=== PATIENT | female | born 1985 | race Asian ===

== ENCOUNTER → 2024-11-27 | Outpatient (CLI) | payer BC, SELFPAY ==
--- NOTE | 2024-11-27 15:45 | XR_ITS ---
Examination: Pelvic ultrasound, transabdominal, complete Technique: Transabdominal ultrasound of the pelvis performed using grayscale imaging Date and time of exam: November 27, 2024 1602 hours INDICATIONS: Pelvic pain beginning 6 months ago FINDINGS: Uterus 7.8 cm anterior uterine fundal mass 10 x 7 x 12 mm, uterine body calcifications 6 mm Endometrium is irregular and may be extending into the myometrium, measuring 1.1 cm Right ovary 2.9 cm and parietal flow small follicles, the largest 7 mm Left ovary 2.6 cm arterial flow small follicles, the largest 6 mm Moderate free fluid in the pelvis IMPRESSION: Anterior uterine area of fibroid degeneration 10 x 7 x 12 mm Abnormally irregular endometrium which may be extending into the myometrium, recommend transvaginal pelvic sonography follow-up
[2024-11-27 17:48] LABS: Follicle Stimulating Hormone 3.64 mIU/mL (See Note); Thyroid Stimulating Hormone 1.72 uIU/mL (0.55-4.78)
[2024-12-10 06:54] LABS: DHEA Sulfate* 95 mcg/dL (23-266); Estradiol, Ultrasensitive* 206 pg/mL; Luteinizing Hormone* 2.9 mIU/mL
== END | disposition home or self-care (01) ==
LOC: CDIM 15:47 → COPL 16:18 → CDIM 12-12 06:40
PROVIDERS: Referring Provider Family Medicine; Visit Provider Family Medicine
DX: D25.9 Leiomyoma of uterus, unspecified (principal)
CPT/HCPCS: 36415; 76856; 82627; 82670; 83001; 83002; 84443

== ENCOUNTER 2025-03-08 13:49 | Outpatient (AMB) | payer BC, SELFPAY ==
--- NOTE | 2025-03-08 14:09 | AMB.GYNCLNOT ---
Vital Signs 03/08/25 14:10 Height 1.5 m Height Method Stated Weight 44.169 kg Weight Measurement Method Standing Scale BMI 19.6 BP 95/65 Blood Pressure Source Automatic Cuff Blood Pressure Location Left Upper Arm Position Sitting Respiration 14 Pulse 76 Pulse Source Monitor Temp 97.8 F Temp Source Oral Pulse Oximetry (%) 98 Oxygen Delivery Method Room Air Allergies/Home Meds Allergies & Medications Allergies No Known Allergies Allergy (Verified 03/08/25 14:10) Intake Visit Data Collection New Patient or Established: Established Patient (seen at 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 Menstrual regularity: regular Flow: heavy Monthly: Yes How many days does period last: 5 Age at menarche: 13 Menopausal: No 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 1. Little interest or pleasure in doing things: not at all 2. Feeling down, depressed, or hopeless: not at all Total score: 0 PHQ-9 3. Trouble falling or staying asleep, or sleeping too much: Not at all 4. Feeling tired or having little energy: Not at all 5. Poor appetite or overeating: Not at all 6. Feeling bad about yourself - or that you are a failure or have let yourself or your family down: Not at all 7. Trouble concentrating on things, such as reading the newspaper or watching television: Not at all 8. Moving or speaking so slowly that other people could have noticed? - Or the opposite - being so fidgety or restless that you have been moving around a lot more than usual: not at all 9. Thoughts that you would be better off or of hurting yourself in some way: Not at all Total score: 0 Source: Developed by Drs. Mayo Ruiz, Aretha French, Shahab Rubio and colleagues, with an educational rey from [employer]. Depression screen completed yes Social History Living Situation History Marital Status: Lives With: Family Housing: House Tobacco History Smoking Status: Never smoker Second Hand Smoke Exposure: No Alcohol History Alcohol Intake: Current Alcohol Intake Frequency: holidays/special occasions only Domestic Abuse History Do You Feel Safe at Home: Yes History of Present Illness HPI Narrative Pelvic pain, heavier periods Patient is a 40-year-old presenting for consultation for pelvic pain. She reports pelvic pain that hurts a lot more but notes she feels a little bit better overall. She describes her menstrual periods as heavier than usual, with shorter duration but increased flow. She attributes these changes to her previous C-sections. The patient was referred by Dr. Sadler after seeing her primary care physician. She has a history of 2 C-sections with bilateral tubal ligation, both pregnancies achieved through IVF. Surgical History: - Two sections with bilateral tubal ligation, both pregnancies were IVF pregnancies Obstetric History: - GPAL: A0 L2 - History of 2 deliveries with bilateral tubal ligation - Both pregnancies were conceived via in vitro fertilization (IVF) - Pelvic ultrasound (08/30/2024): Uterus 7.8 cm with fundal mass measuring 10 x 7 x 12 cm, uterine body calcifications present, irregular endometrium extending into myometrium measuring 1.1 cm, right ovary 2.9 cm, left ovary 2.6 cm, moderate free fluid in pelvis Exam General General Appearance: alert, in no apparent distress and healthy appearing Head Head exam: atraumatic Neck Neck exam: Present normal inspection and trachea midline Chest Chest inspection: Present normal inspection and symmetric chest wall rise External exam: Present normal external exam; Absent tenderness Neuro Neurological exam: Present oriented X3 Psych Psychiatric exam: Present normal affect and normal mood Office Procedures [facility] LOC & Office Proc's Nursing/Assessment Patient Status: Established Patient OB Clinic Nursing Assessment: Medication Reconciliation, Update PMH in EMR and Vital Signs OB Clinic Coordination of Care: Complex Care and Chronic Disease 1-5, Consent,records obtained, informed consent, Education Simp Pt/Fam, 1 Ins Authorization, Lab and Imaging orders, Results/Orders obtained and Staff clarify orders Established Patient Charge Established Patient Point Assignment: 120 Established Patient Point Charge: EP Level 4 (120-155) Assessment & Plan Diagnosis / Problem List (1) Endometriosis of the uterus, unspecified: Status: Acute (2) Intramural leiomyoma of uterus: Status: Acute (3) Excessive and frequent menstruation with regular cycle: Status: Acute (4) Pelvic and perineal pain unspecified side: Status: Acute Plan Pelvic pain Assessment: Patient presents with pelvic pain that is slowly improving. Pelvic ultrasound from August 30, 2024 reveals a fundal mass measuring 10 x 7 x 12 cm consistent with uterine fibroid. Fibroids characteristically cause pain and heavy menstrual bleeding, which correlates with the patient's symptoms of increased menstrual flow despite shorter duration periods. Plan: - Endometrial biopsy under anesthesia in hospital setting - Submit procedure for insurance approval - Schedule procedure before end of month once approval obtained - Follow-up visit 3-4 days post-procedure to discuss biopsy results Heavy menstrual bleeding Assessment: Patient reports heavier menstrual periods with shorter duration. Ultrasound findings show irregular endometrium extending into myometrium measuring 1.1 cm, suggestive of adenomyosis, which can cause heavy bleeding. Additionally, the identified uterine fibroid contributes to heavy menstrual flow. Plan: - Hysteroscopy with endometrial biopsy to evaluate irregular endometrium - If biopsy negative, cancer ruled out - If biopsy shows abnormal findings, hysterectomy will be recommended Uterine fibroid Assessment: Pelvic ultrasound demonstrates enlarged uterus measuring 7.8 cm with fundal mass 10 x 7 x 12 cm consistent with uterine fibroid. Patient has associated symptoms of pelvic pain and heavy menstrual bleeding typical of fibroid presentation. Plan: - Endometrial biopsy procedure as outlined above - Management plan will be determined based on biopsy results Irregular endometrium with adenomyosis Assessment: Ultrasound reveals irregular endometrium extending into myometrium measuring 1.1 cm, consistent with adenomyosis. There is theoretical risk of increased cancer risk, though not at this time. Tissue sampling required for definitive evaluation and to rule out malignancy. Plan: - Hysteroscopy with camera introduction into uterus for direct visualization - Tissue biopsies of irregular endometrium under anesthesia - 5-minute outpatient procedure - Patient will go home same day and return in 3-4 days for results discussion
[2025-03-08 14:10] VITALS: BP 95/65; PULSE 76; RESP 14; TEMP 36.6; O2SAT 98; BMI 19.6
== END 2025-03-08 14:18 | disposition home or self-care (01) ==
LOC: HODSOBC 13:49
PROVIDERS: Supervising Provider Obstetrics & Gynecology; Visit Provider Obstetrics & Gynecology
DX: D25.1 Intramural leiomyoma of uterus (principal); N80.03 Adenomyosis of the uterus; N92.0 Excessive and frequent menstruation with regular cycle
CPT/HCPCS: 99214; G0463

== ENCOUNTER 2025-03-28 08:20 | Day surgery (SDC) | payer BC, SELFPAY ==
[2025-03-26 09:24] VITALS: BMI 20.5
[2025-03-26 12:10] LABS: Basophils # (Auto) 0.0 Thou/mm3 (0.0-0.2); Basophils % (Auto) 0 % (0-2.5); Eosinophils # (Auto) 0.1 Thou/mm3 (0.0-0.5); Eosinophils % (Auto) 3 % (0-10); Hematocrit 41.4 % (36.0-46.0); Hemoglobin 13.5 g/dL (12.0-16.0); Immature Granulocytes Auto 0.01 Thou/mm3 (0.00-0.00); Lymphocytes # (Auto) 1.0 Thou/mm3 (1.0-4.8); Lymphocytes % (Auto) 21 % (10-50); Mean Corpuscular HGB Conc 32.6 g/dl (31.0-37.0); Mean Corpuscular Hemoglobin 28.4 pg (25.0-35.0); Mean Corpuscular Volume 87 fL (80-100); Monocytes # (Auto) 0.3 Thou/mm3 (0.0-0.8); Monocytes % (Auto) 6 % (0-12); Neutrophils # (Auto) 3.4 Thou/mm3 (1.8-7.7); Neutrophils % (Auto) 70 % (37-80); Nucleated Red Blood Cell # 0.00 Thou/mm3 (0.00-0.00); Nucleated Red Blood Cell % 0 /100 WBC (0); Platelet Count 223 Thou/mm3 (140-440); RDW Standard Deviation 44.5 fL (36.4-46.3); Red Blood Count 4.76 Miln/mm3 (4.00-5.20); White Blood Count 4.8 Thou/mm3 (3.6-11.0)
[2025-03-26 12:42] LABS: HCG,Qualitative Serum Negative
[2025-03-26 13:20] LABS: Alanine Aminotransferase 31 U/L (10-49); Albumin, Serum 5.0 gm/dL (3.5-5.0); Albumin/Globulin Ratio 1.9 (1.2-2.2); Alkaline Phosphatase 38 U/L (46-116); Anion Gap 8 (7-16); Aspartate Amino Transferase 12 U/L (0-34); BUN/Creatinine Ratio 17 Ratio (12-20); Bilirubin,Total 0.8 mg/dL (0.3-1.2); Blood Urea Nitrogen 10 mg/dL (9-23); Calcium 9.4 mg/dL (8.3-10.6); Calcium (Corrected) 9.4 mg/dL (8.5-10.1); Carbon Dioxide 25.9 mMol/L (20.0-31.0); Chloride 106 mMol/L (98-107); Creatinine (Component) 0.6 mg/dL (0.6-1.3); Estimated Creatinine Clearance 81.3 mL/min (>60); Globulin 2.7 gm/dL (2.3-3.5); Glucose 87 mg/dL (74-106); Osmolality,Calculated 277 (275-295); Potassium 4.3 mMol/L (3.4-5.1); Sodium 140 mMol/L (136-145); Total Protein 7.7 gm/dL (5.7-8.2); eGFR > 60 See Note
[2025-03-28] VITALS (9 sets, daily range): BP systolic 99–119; BP diastolic 64–80; PULSE 55–76; RESP 10–18; TEMP 36.2–36.3; O2SAT 98–100; BMI 20.1
[2025-03-28] MEDS: RINGERS LACTATED 1000 ML 1,000 ML 20 ML IV (09:26)
--- NOTE | 2025-03-28 10:11 | PD.GYNPROC ---
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 Identity was confirmed using double identifiers, and she was placed on the operating table. General anesthesia was administered, and the patient was positioned in Ray stirrups in the dorsal lithotomy position. The perineum was prepped in the usual sterile fashion, and sterile drapes were applied. A straight catheter was used to empty the bladder. A weighted speculum was placed in the posterior vaginal wall, and a right-angle retractor was used to retract the anterior wall. A single-tooth tenaculum was applied to the anterior lip of the cervix to provide traction. The cervical length from the external to the internal os was measured, and the uterine length was assessed using a uterine sound. Serial dilators were used to dilate the cervix up to 7 mm. Patient was on her menstrual period and brisk bleeding was noted at the start of the procedure. The hysteroscope was connected to the fluid management system, which was primed before introducing the hysteroscope into the uterine cavity under direct visualization. Upon entry, the uterine cavity was noted to be grossly distorted, resembling a tunnel due to significant submucosal fibroids, polyps, and thickened endometrium. The MyoSure device was introduced to address the submucosal fibroids and thickened endometrium. Thickened tissue from the fundal corpus of the uterus as well as the entire posterior aspect as well as the endocervical canal was carefully resected using the MyoSure. All the dissection sites were noted to be hemostatic. The hysteroscope was removed, and the cervix was inspected and noted to be adequately hemostatic. The tenaculum and speculum were removed, and the vaginal canal was cleared of any residual debris. Patient continued to have bleeding which she had preoperatively consistent with her menstrual period. the patient was cleaned, undraped, and taken out of the lithotomy position. General anesthesia was reversed, and the patient was transferred to the recovery room in a stable and awake condition. The patient tolerated the procedure well. All instrument, sponge, and lap counts were correct ?2. Estimated blood loss (ml): 20 Complications: none Surgical staff Operation Date: 03/28/25 10:00 <No data on this case meets the specified criteria> Diagnosis Discharge Diagnosis (1) Excessive and frequent menstruation with regular cycle: Status: Acute (2) Intramural leiomyoma of uterus: Status: Acute (3) Endometriosis of the uterus, unspecified: Status: Acute Problem List Completed Was Problem List Reviewed/Reconciled?: Yes
--- NOTE | 2025-03-28 10:18 | SUR.PHASEI ---
pt received from OR in recovery bay 4. pt obtunded, breathing unlabored on oxymask 8l, lma in place. v/s stable. pt dressing peripad minimal bleeding noted. report received from Dr. Kitchen and Elo Miranda.
[2025-03-28] MEDS: TRANEXAMIC ACID 1,000 MG IVPB 1,000 MG/100 ML BAG 400 MG IV (10:38)
--- NOTE | 2025-03-28 10:53 | SUR.PHASEII ---
pt able to tolerate oral fluids without difficulty swallowing or nausea/vomiting.
--- NOTE | 2025-03-28 11:50 | SUR.PHASEII ---
1134:pt awake, alert, able to follow commands, breathing unlabored, peripad in place with small amount of red drainage- peripad changed, pt disconnected from monitors and meets discharge criteria, report from Adolfo BRIDGES [id number]: pt able to dress self and ambulate to wheelchair with steady gait, discharge instructions given by Adolfo BRIDGES with sister present, pt discharged via wheelchair with all belongings and copies of discharge paperwork.
== END 2025-03-28 11:50 | disposition home or self-care (01) ==
PROVIDERS: PCP Family Medicine; Referring Provider Obstetrics & Gynecology; Visit Provider Obstetrics & Gynecology
PROC: 0UJD8ZZ Inspection of Uterus and Cervix, Via Natural or Artificial Opening Endoscopic (ICD-10-PCS; CPT 58555; principal; 2025-03-28 09:45)
DX: D25.1 Intramural leiomyoma of uterus (principal); N80.00 Endometriosis of the uterus, unspecified
CPT/HCPCS: 58561; 36415; 80053; 84703; 85025; 86850; 86900; 86901; A4217; A4649; J0131; J1100; J2250; J2405; J2704; J3010; J3490; J7120